=== PATIENT | female | born 1985 | race African-American/Black ===

== ENCOUNTER 2017-05-23 21:31 | Emergency (ER) | payer SELFPAY ==
[~2017-05-23] VITALS: Ht 160 cm; Wt 86.0 kg
[2017-05-23 22:29] VITALS: BP 122/68; PULSE 85; RESP 18; TEMP 98.7; O2SAT 100
== END 2017-05-24 02:16 | disposition left against medical advice (07) ==
LOC: NED 21:31
DX: J02.9 Acute pharyngitis, unspecified (principal)
CPT/HCPCS: 99281